=== PATIENT | female | born 1985 | race American Indian/Alaskan Native ===

== ENCOUNTER 2017-02-05 16:59 | Emergency (ER) | payer OTHER ==
[2017-02-05] MEDS ORDERED: ZOFRAN ODT PO ONE (17:19)
--- NOTE | 2017-02-05 17:26 | Emergency Department Report ---
Entered by CARMEN DIAZ, acting as scribe for JULIANN HUYNH NP. Chief Complaint: Abdominal Pain Stated Complaint: ABD PAIN /VAG BLEEDING Time Seen by Provider: 02/05/17 17:16 - HPI History of Present Illness: 31 y/o female who is non toxic appearing, in no acute distress presents with c/ o intermittent sharp, aching pelvic pain and vaginal bleeding described as spotting for 2 months. She rates her current pelvic pain as a 7/10 in severity. Associated sx's include nausea, diarrhea but denies vomiting. Reports "several" negative at home tests since onset. - ROS Review of Systems: Reports pelvic pain, vaginal spotting, nausea, diarrhea. Denies vomiting. - Exam Vital Signs: Vital Signs 02/05/17 17:04 Temperature 98.6 F Pulse Rate 61 Respiratory 18 Rate Blood Pressure 135/85 O2 Sat by Pulse 100 Oximetry Physical Exam: Constitutional: Non toxic appearing, NAD. Abdomen: Abdomen is non-distended, soft with no tenderness to palpation in all quadrants. No abdominal bruit. No epigastric pain. Negative [place] Tenderness. Negative [place] sign. MSE screening note: Focused history and physical exam performed. Due to findings the following was ordered: CBC, CMP, amylase, lipase, serum HCG qualitative, UA, Zofran 4 mg PO ED Disposition for MSE Condition: Stable Instructions: Abdominal Pain (ED) This documentation as recorded by the scribe,CARMEN DIAZ,accurately reflects the service I personally performed and the decisions made by me,JULIANN HUYNH, SHANIKA.
[2017-02-05 17:35] LABS: Basophils % (Auto) 1.4 % (0.0-1.8); Eosinophils % (Auto) 1.5 % (0.0-4.3); Hematocrit 37.2 % (30.3-42.9); Hemoglobin 12.8 gm/dl (10.1-14.3); Mean Corpuscular HGB Conc 34 % (30-34); Mean Corpuscular Hemoglobin 29 pg (28-32); Mean Corpuscular Volume 83 fl (79-97); Platelet Count 265 K/mm3 (140-440); Red Blood Count 4.47 M/mm3 (3.65-5.03); Red Cell Distribution Width 13.9 % (13.2-15.2); White Blood Count 6.3 K/mm3 (4.5-11.0)
[2017-02-05 17:55] LABS: Alanine Aminotransferase 21 units/L (7-56); Albumin 4.1 g/dL (3.9-5); Albumin/Globulin Ratio 1.5 %; Alkaline Phosphatase 60 units/L (35-129); Amylase 68 units/L (27-131); Anion Gap 14 mmol/L; BUN/Creatinine Ratio 24.28; Blood Urea Nitrogen 17 mg/dL (7-17); Calcium 9.2 mg/dL (8.4-10.2); Carbon Dioxide 28 mmol/L (22-30); Chloride 100.8 mmol/L (98-107); Glucose 82 mg/dL (65-100); Lipase 34 units/L (13-60); Potassium 4.7 mmol/L (3.6-5.0); Sodium 138 mmol/L (137-145); Total Protein 6.9 g/dL (6.3-8.2)
[2017-02-05 18:07] LABS: Bilirubin,Urine NEG (Negative); Blood,Urine MOD (Negative); Ketones,Urine NEG (Negative); Leukocyte Esterase,Urine SM (Negative); Nitrite,Urine NEG (Negative); Protein,Urine <15 mg/dL mg/dL (Negative); Urobilinogen,Urine < 2.0 mg/dL (<2.0)
--- NOTE | 2017-02-06 07:29 | Emergency Department Report ---
ED Abdominal Pain HPI - General Chief Complaint: Abdominal Pain Stated Complaint: ABD PAIN /VAG BLEEDING Time Seen by Provider: 02/06/17 07:15 Source: patient, RN notes reviewed Mode of arrival: Ambulatory Limitations: No Limitations - History of Present Illness Initial Comments: 31-year-old female presents to the emergency department complaining of intermittent lower abdominal pain and irregular periods for the past 2 months. Patient describes intermittent, cramping abdominal pain in her right lower abdomen. She states her periods have been irregular, stating that she will bleed for only 3 days. She states she has taken 2 home tests, both of which were negative. She denies nausea, vomiting, vaginal bleeding, or vaginal discharge. There are no other complaints. MD Complaint: abdominal pain -: Gradual, month(s) (2) Location: RLQ Radiation: none Migration to: no migration Severity scale (0 -10): 0 Quality: cramping Consistency: now resolved Improves With: nothing Worsens With: nothing Associated Symptoms: denies other symptoms - Related Data Previous Rx's Medication Instructions Recorded Last Taken Type HYDROcodone/APAP 5-325 [[place] 1 each PO Q6HR PRN #20 tablet 02/06/17 Unknown Rx 5/325] Promethazine [Phenergan TAB] 25 mg PO Q6HR PRN #20 tab 02/06/17 Unknown Rx Allergies Allergy/AdvReac Type Severity Reaction Status Date / Time No Known Allergies Allergy Unverified 02/05/17 17:07 ED Review of Systems ROS: Stated complaint: ABD PAIN /VAG BLEEDING Other details as noted in HPI Comment: All other systems reviewed and negative Gastrointestinal: abdominal pain Genitourinary: abnormal menses ED Past Medical Hx - Past Medical History Previous Medical History?: Yes Hx Asthma: Yes - Surgical History Past Surgical History?: No - Family History Family history: no significant - Social History Smoking Status: Never Smoker Substance Use Type: Alcohol - Medications Home Medications: Home Medications Medication Instructions Recorded Confirmed Last Taken Type HYDROcodone/APAP 5-325 [[place] 1 each PO Q6HR PRN #20 tablet 02/06/17 Unknown Rx 5/325] Promethazine [Phenergan TAB] 25 mg PO Q6HR PRN #20 tab 02/06/17 Unknown Rx ED Physical Exam - General Limitations: No Limitations General appearance: alert, in no apparent distress - Head Head exam: Present: atraumatic, normocephalic - Eye Eye exam: Present: normal appearance, PERRL, EOMI - ENT ENT exam: Present: normal exam, normal orophraynx, mucous membranes moist - Neck Neck exam: Present: normal inspection, full ROM. Absent: tenderness - Respiratory Respiratory exam: Present: normal lung sounds bilaterally. Absent: respiratory distress - Cardiovascular Cardiovascular Exam: Present: regular rate, normal rhythm, normal heart sounds - GI/Abdominal GI/Abdominal exam: Present: soft, tenderness (mild right lower quadrant and suprapubic tenderness to palpation), normal bowel sounds. Absent: distended, guarding, rebound - Extremities Exam Extremities exam: Present: normal inspection, full ROM. Absent: tenderness - Back Exam Back exam: Present: normal inspection, full ROM. Absent: tenderness - Neurological Exam Neurological exam: Present: alert, oriented X3. Absent: motor sensory deficit - Skin Skin exam: Present: warm, dry, intact ED Course Vital Signs 02/05/17 02/06/17 02/06/17 17:04 02:30 03:30 Temperature 98.6 F 98.0 F Pulse Rate 61 50 L 91 H Respiratory 18 18 20 Rate Blood Pressure 135/85 114/60 Blood Pressure [Left] O2 Sat by Pulse 100 99 Oximetry 02/06/17 02/06/17 02/06/17 04:00 06:14 06:56 Temperature 98 F Pulse Rate 89 106 H Respiratory 21 18 Rate Blood Pressure 121/79 141/69 Blood Pressure 110/63 [Left] O2 Sat by Pulse 100 97 Oximetry 02/06/17 02/06/17 02/06/17 07:00 08:00 09:00 Temperature Pulse Rate Respiratory Rate Blood Pressure 105/59 101/50 93/54 Blood Pressure [Left] O2 Sat by Pulse 96 98 99 Oximetry 02/06/17 10:00 Temperature Pulse Rate Respiratory Rate Blood Pressure 101/59 Blood Pressure [Left] O2 Sat by Pulse 99 Oximetry ED Medical Decision Making - Lab Data Result diagrams: 02/05/17 17:22 02/05/17 17:22 - Radiology Data Radiology results: report reviewed, image reviewed Pelvic ultrasound reveals a 2.5 cm left ovarian cyst. There is no other acute abnormality. - Medical Decision Making Lab and imaging results reviewed and discussed with the patient. Patient reports her pain is improved with medication. Patient will be discharged home at this time to follow up with her [employer]. - Differential Diagnosis ovarian cyst, ectopic , ovarian torsion Critical care attestation.: If time is entered above; I have spent that time in minutes in the direct care of this critically ill patient, excluding procedure time. ED Disposition Clinical Impression: Ovarian cyst Disposition: DISCHARGED TO HOME OR SELFCARE Is pt being admited?: No Condition: Stable Instructions: Abdominal Pain (ED) Prescriptions: HYDROcodone/APAP 5-325 [[place] 5/325] 1 each PO Q6HR PRN #20 tablet PRN Reason: Pain Promethazine [Phenergan TAB] 25 mg PO Q6HR PRN #20 tab PRN Reason: Nausea Referrals: RENEE MIRZA MD [Staff Physician] - 3-5 Days Time of Disposition: 13:21
[2017-02-06 11:55] VITALS: BP 101/59
--- NOTE | 2017-02-06 13:01 | Ultrasound Report ---
Transabdominal and transvaginal pelvic ultrasound. History: Right pelvic pain. Findings: The uterus is normal in size and configuration with no focal abnormalities. The endometrial echo measures 10.4 mm in thickness and appears normal. The right ovary is normal. There is a 2.5 cm in diameter cystic mass in the left ovary. There is no fluid within the cul-de-sac. Impression: 2.5 cm left ovarian cyst.
== END 2017-02-06 13:42 | disposition home or self-care (01) ==
LOC: ED 16:59
DX: N83.202 Unspecified ovarian cyst, left side (principal); J45.909 Unspecified asthma, uncomplicated
CPT/HCPCS: 36415; 76830; 76856; 80053; 81001; 82150; 83690; 84702; 85025; Q0162

== ENCOUNTER 2018-03-28 14:11 | Emergency (ER) | payer SELFPAY ==
[2018-03-28 14:59] VITALS: BP 118/61
[2018-03-28] MEDS ORDERED: NACL 0.9% 1000 ML 1,000 ML IV ONE (15:04)
--- NOTE | 2018-03-28 15:05 | Emergency Department Report ---
ED Syncope HPI - General Chief Complaint: Syncope Stated Complaint: HEAT STROKE Time Seen by Provider: 03/28/18 14:36 Source: patient, EMS (ems notes not available at time of chart dictation) Exam Limitations: no limitations - History of Present Illness Initial Comments: This is a 32-year-old female who is unknown to this provider. She does not have a local primary care doctor, denies past medical history, denies , and denies /vaginal delivery/miscarriage within the past 6 weeks. Patient presents to the ER with a complaint of unprovoked episode of syncope. She reports that she was walking and "fell out." Prior to event, there was no headache, neck pain, chest pain, abdominal pain or shortness of breath. She denies drug use. She denies DVT, pulmonary embolus risk factors. She reports that something similar happen to her in the past a few years ago, and was diagnosed with "heat stroke." Her symptoms are now resolved, she has no complaints, and her episode was painless, did not radiate anywhere, and did not have exacerbating or relieving factors. Timing/Prior Episodes: no prior history Precipitating Factors: Positive: none Context: other (walking) Loss of Consciousness: brief (seconds) Current Symptoms: back to normal - Related Data Allergies/Adverse Reactions: Allergies No Known Allergies Allergy (Unverified 02/05/17 17:07) Home Medications: Ambulatory Orders HYDROcodone/APAP 5-325 [[place] 5/325] 1 each PO Q6HR PRN #20 tablet 02/06/17 Promethazine [Phenergan TAB] 25 mg PO Q6HR PRN #20 tab 02/06/17 ED Review of Systems ROS: Stated complaint: HEAT STROKE Other details as noted in HPI Constitutional: denies: fever, malaise Eyes: denies: eye discharge ENT: denies: epistaxis Respiratory: denies: cough Cardiovascular: syncope. denies: chest pain Gastrointestinal: denies: abdominal pain Genitourinary: denies: urgency, dysuria Musculoskeletal: denies: back pain Skin: denies: lesions Neurological: denies: headache, weakness Psychiatric: denies: anxiety ED Past Medical Hx - Past Medical History Previous Medical History?: Yes Hx Asthma: Yes - Surgical History Past Surgical History?: No - Social History Smoking Status: Current Every Day Smoker Substance Use Type: Alcohol - Medications Home Medications: Home Medications Medication Instructions Recorded Confirmed Last Taken Type HYDROcodone/APAP 5-325 [[place] 1 each PO Q6HR PRN #20 tablet 02/06/17 Unknown Rx 5/325] Promethazine [Phenergan TAB] 25 mg PO Q6HR PRN #20 tab 02/06/17 Unknown Rx ED Physical Exam - General Limitations: No Limitations General appearance: alert, in no apparent distress - Head Head exam: Present: atraumatic, normocephalic - Eye Eye exam: Present: normal appearance, PERRL, EOMI, other (visual acuity intact to finger counting, color perception, reading at a close distance). Absent: nystagmus - ENT ENT exam: Present: normal exam, normal orophraynx, mucous membranes moist, TM's normal bilaterally, normal external ear exam, other (there is no nasal septal hematoma. There is no hemotympanum.) - Neck Neck exam: Present: normal inspection, full ROM, other (there is no midline cervical spine tenderness.). Absent: tenderness, meningismus - Respiratory Respiratory exam: Present: normal lung sounds bilaterally. Absent: respiratory distress, chest wall tenderness - Cardiovascular Cardiovascular Exam: Present: regular rate, normal rhythm, normal heart sounds. Absent: bradycardia, tachycardia, irregular rhythm, systolic murmur, diastolic murmur, rubs, gallop - GI/Abdominal GI/Abdominal exam: Present: soft, normal bowel sounds. Absent: distended, tenderness, guarding, rebound, rigid, pulsatile mass - Extremities Exam Extremities exam: Present: normal inspection, full ROM, normal capillary refill , other (there is no palpable cord. There is negative [place] sign. Compartments are soft. 2+ pulses noted in the bilateral upper, lower extremities). Absent: pedal edema, joint swelling, calf tenderness - Back Exam Back exam: Present: normal inspection, full ROM. Absent: tenderness, CVA tenderness (R), paraspinal tenderness, vertebral tenderness - Neurological Exam Neurological exam: Present: alert, oriented X3, CN II-XII intact, normal gait, other (Extraocular movements intact. Tongue midline. No facial droop. Facial sensation intact to light touch in the V1, V2, V3 distribution bilaterally. 5 and 5 strength in 4 extremities.. Sensation is intact to light touch in 4 extremities.). Absent: motor sensory deficit - Psychiatric Psychiatric exam: Present: normal affect, normal mood - Skin Skin exam: Present: warm, dry, intact, normal color. Absent: rash ED Course Vital Signs 03/28/18 03/28/18 03/28/18 14:16 14:24 14:30 Temperature 98.7 F Pulse Rate 70 70 78 Respiratory 18 15 13 Rate Blood Pressure 111/70 118/61 O2 Sat by Pulse 99 99 99 Oximetry 03/28/18 03/28/18 03/28/18 14:45 15:01 15:15 Temperature Pulse Rate 72 69 62 Respiratory 17 16 18 Rate Blood Pressure 118/61 O2 Sat by Pulse 98 99 99 Oximetry - Reevaluation(s) Reevaluation #1: 03/28/18 17:13 The patient is reassessed. Vital signs have remained stable. Orthostatic vital signs reviewed and appreciated. Urine toxicology screen demonstrates the presence of cannabinoids. Patient was instructed to discontinue cannabinoid consumption, if she is doing so. I have reiterated to the patient that she should follow up with outpatient cardiology. She walks with a steady gait. No further episodes of syncope noted. ED Medical Decision Making - Lab Data Result diagrams: 03/28/18 15:11 03/28/18 15:11 - EKG Data -: EKG Interpreted by Me EKG shows normal: sinus rhythm - EKG Data When compared to previous EKG there are: previous EKG unavailable 03/28/18 16:13 normal sinus, 60 bpm, normal axis, normal intervals, low voltage noted in the lateral leads, T-wave inversion in lead 3, EKG is nonspecific, not a STEMI - Radiology Data Radiology results: report reviewed, image reviewed Noncontrast CT scan of the brain is negative for acute disease - Medical Decision Making Differential diagnosis, including but not limited to: Orthostasis, vagal event, heat-related illness, pulmonary embolus, dehydration Assessment and plan: 32-year-old female, no pulmonary embolus or DVT risk factors, low risk by well's criteria, perc negative with isolated episode of syncope, feeling back to baseline, [place] Coma Scale of 15, with an NIH score of 0.Patient is clinically sober at this time. The cervical spine is cleared through nexus and french c spine rule Laboratory studies unremarkable. D-dimer is negative. EKG essentially unremarkable with nonspecific abnormalities. Noncontrast CT scan of the brain is pending. Patient did not have a sudden or thunderclap headache prior to the event, the history is not consistent or suggestive of subarachnoid hemorrhage. We will observe the patient on a ekg monitor tech. If no recurrent events noted , and laboratory studies appear to be unremarkable, the patient should follow- up with an outpatient wheat farmer or primary care doctor. Patient is further instructed to not drive or operate motor vehicles for the next 6 months., Critical care attestation.: If time is entered above; I have spent that time in minutes in the direct care of this critically ill patient, excluding procedure time. ED Disposition Clinical Impression: History of syncope Disposition: DC-01 TO HOME OR SELFCARE Is pt being admited?: No Does the pt Need Aspirin: No Condition: Good Instructions: Syncope (ED) Additional Instructions: Do not drive or operate motor vehicles for the next 6 months. Follow-up with a primary care doctor or wheat farmer within the next 7-10 days. Drink 6-8 cups of water per day. Return to the ER right away with new pain, worsened pain, migration of pain, fevers, chills, confusion, projectile vomiting , change in mental status, recurrent loss of consciousness. Laboratory studies were unremarkable, urine toxicology screen demonstrated the presence of cannabinoids/marijuana. Please do not consume marijuana or other illicit substances if patient is doing so. Referrals: PRIMARY CARE, [Primary Care Provider] - 3-5 Days [facility] [Provider Group] - 3-5 Days [facility] [Provider Group] - 3-5 Days [facility] [Provider Group] - 3-5 Days
[2018-03-28 15:24] LABS: Hematocrit 35.2 % (30.3-42.9); Hemoglobin 12.1 gm/dl (10.1-14.3); Mean Corpuscular HGB Conc 34 % (30-34); Mean Corpuscular Hemoglobin 28 pg (28-32); Mean Corpuscular Volume 81 fl (79-97); Platelet Count 256 K/mm3 (140-440); Red Blood Count 4.34 M/mm3 (3.65-5.03); Red Cell Distribution Width 13.7 % (13.2-15.2)
[2018-03-28 15:34] LABS: INR 1.01 (0.87-1.13)
[2018-03-28 15:59] LABS: Alanine Aminotransferase 5 units/L (7-56); Albumin 3.4 g/dL (3.9-5); BUN/Creatinine Ratio 11; Blood Urea Nitrogen 8 mg/dL (7-17); Calcium 8.8 mg/dL (8.4-10.2); Hemolysis Index 4
--- NOTE | 2018-03-28 16:11 | Cat Scan Report ---
FINAL REPORT PROCEDURE: CT HEAD/BRAIN WO CON TECHNIQUE: Computerized tomography of the head was performed without contrast material. HISTORY: Syncope COMPARISON: No prior studies are available for comparison. FINDINGS: Brain: Brain density appears normal. No evidence of intracranial hemorrhage. No parenchymal hemorrhage, mass lesions or mass effect are seen. No abnormal extraxial fluid collects or masses are seen. Minimal nonspecific mineralization of the basal ganglia are visualized. Ventricles: Ventricles are normal size and are midline. Bone Windows: No evidence of skull fracture. Paranasal sinuses: Visualized portions are clear. Mastoid air cells: Clear IMPRESSION: Negative exam.
[2018-03-28 16:39] LABS: Bilirubin,Urine NEG (Negative); Blood,Urine SM (Negative); Color,Urine Yellow (Yellow); Mucus,Urine FEW /HPF; Protein,Urine <15 mg/dL mg/dL (Negative)
[2018-03-28 16:47] LABS: Amphetamine Screen,Urine PRESUMPTIVE NEGATIVE; Benzodiazepines Screen,Urine PRESUMPTIVE NEGATIVE; Cocaine Screen,Urine PRESUMPTIVE NEGATIVE; Methadone Screen,Urine PRESUMPTIVE NEGATIVE; Opiate Screen,Urine PRESUMPTIVE NEGATIVE
[2018-03-28 16:58] LABS: Cannabinoid Screen,Urine PRESUMPTIVE POSITIVE
== END 2018-03-28 17:47 | disposition home or self-care (01) ==
LOC: ED 14:11
DX: R55 Syncope and collapse (principal); F17.200 Nicotine dependence, unspecified, uncomplicated; J45.909 Unspecified asthma, uncomplicated
CPT/HCPCS: 36415; 70450; 80053; 80307; 81001; 82550; 83735; 84443; 84703; 85027; 85379; 85610; 93005; 93010; 96360; 99285; J7030